=== PATIENT | male | born 1985 | race Caucasian/White ===

== ENCOUNTER 2019-09-30 00:29 | Emergency (ER) | payer OTHER ==
[~2019-09-30] VITALS: Ht 170.2 cm; Wt 70.5 kg
[2019-09-30 02:20] VITALS: BP 154/95
== END 2019-09-30 02:21 | disposition home or self-care (01) | DRG 563 ==
LOC: ED 00:29
DX: S46.911A Strain of unspecified muscle, fascia and tendon at shoulder and upper arm level, right arm, initial encounter (principal); S00.81XA Abrasion of other part of head, initial encounter; S50.01XA Contusion of right elbow, initial encounter; S50.811A Abrasion of right forearm, initial encounter; V59.40XA Driver of pick-up truck or van injured in collision with unspecified motor vehicles in traffic accident, initial encounter

== ENCOUNTER 2020-01-26 16:10 | Emergency (ER) | payer SELFPAY ==
[~2020-01-26] VITALS: Ht 172.7 cm; Wt 79.5 kg
[2020-01-26] MEDS ORDERED: CEPHALEXIN500 M1 PO (16:34)
[2020-01-26 17:01] VITALS: BP 143/82
== END 2020-01-26 17:06 | disposition home or self-care (01) | DRG 605 ==
LOC: ED 16:10
DX: S60.511A Abrasion of right hand, initial encounter (principal); S61.511A Laceration without foreign body of right wrist, initial encounter; F17.210 Nicotine dependence, cigarettes, uncomplicated; W25.XXXA Contact with sharp glass, initial encounter; Y93.89 Activity, other specified; Y92.009 Unspecified place in unspecified non-institutional (private) residence as the place of occurrence of the external cause